=== PATIENT | female | born 1950 | race Caucasian/White ===

== ENCOUNTER 2017-02-23 18:31 | Inpatient (IN) | payer OTHER ==
[~2017-02-23] VITALS: Ht 154.9 cm; Wt 100.4 kg
[2017-02-23] MEDS ORDERED: SODIUM CHLORIDE 0.9% 1,000 ML IV ONE (18:48)
[2017-02-23] MEDS ORDERED: ASPIRIN 81 MG TABLET CHEW PO ONE (19:00)
[2017-02-23] MEDS ORDERED: ASPIRIN 81 MG TABLET CHEW ONE (19:00)
[2017-02-23] MEDS ORDERED: ONDANSETRON 2MG/ML, 2ML IVPush ONE (19:00)
[2017-02-23] MEDS ORDERED: NITROGLYCERIN SINGLE TAB 0.4 MG SL PRN (19:00)
[2017-02-23] MEDS ORDERED: NITROGLYCERIN SINGLE TAB 0.4 MG SL ONE (19:00)
[2017-02-23] MEDS ORDERED: SODIUM CHLORIDE FLUSH 10ML SYR IVF ONE (19:00)
[2017-02-23] MEDS ORDERED: ONDANSETRON 2MG/ML, 2ML ONE (19:01)
[2017-02-23 19:20] LABS: ASPARTATE AMINO TRANSFERASE 70 U/L (15-37); BLOOD UREA NITROGEN 15 mg/dL (7-18)
[2017-02-23 19:26] LABS: IS PT STATUS REG ER OR PRE ER? YES
[2017-02-23] MEDS ORDERED: DICL75TA2 PO (20:38)
[2017-02-23] MEDS ORDERED: OMEP-110 PO (20:38)
[2017-02-23] MEDS ORDERED: FINA5TAB4 PO (20:38)
[2017-02-23] MEDS ORDERED: PRAV20TA2 PO (20:38)
[2017-02-23] MEDS ORDERED: LORA0.5T PO (20:38)
[2017-02-23] MEDS ORDERED: LISI-167 PO (20:38)
[2017-02-23] MEDS ORDERED: FLUO20CA19 PO (20:38)
[2017-02-23] MEDS ORDERED: GABA100C8 PO (20:38)
[2017-02-23] MEDS ORDERED: OMNIPAQUE 350 MG/ML, 100ML BOTTLE ONE (21:03)
[2017-02-23] MEDS: SODIUM CHLORIDE FLUSH 3ML SYRINGE IVF SCH (23:00)
[2017-02-23] MEDS ORDERED: NITROGLYCERIN 0.4 MG BOTTLE (25 TABS) SL PRN (23:00)
[2017-02-23] MEDS ORDERED: ONDANSETRON 2MG/ML, 2ML IVPush PRN (23:00)
[2017-02-23] MEDS ORDERED: POLYETHYLENE GLYCOL 17 GM PACKET PO PRN (23:00)
[2017-02-23] MEDS: GABAPENTIN 100 MG CAPSULE PO SCH (23:00)
[2017-02-23] MEDS ORDERED: HYDROmorphone 2 MG/ML, 1ML IVPush PRN (23:00)
[2017-02-23] MEDS ORDERED: PRAVASTATIN 20 MG TABLET PO SCH (23:00)
[2017-02-23] MEDS ORDERED: ENALAPRILAT 1.25 MG/ML, 2ML IVPush PRN (23:00)
[2017-02-23] MEDS ORDERED: BISACODYL 10 MG SUPP PR PRN (23:00)
[2017-02-23] MEDS: HEPARIN 5,000 UNITS/ML, 1ML SQ SCH (23:46)
[2017-02-23] MEDS: LORazepam 0.5MG TABLET PO SCH (23:46)
[2017-02-23 23:57] VITALS: BP 174/79
[2017-02-24 01:45] LABS: IS PT STATUS REG ER OR PRE ER? NO
[2017-02-24 04:00] VITALS: BP 119/69
[2017-02-24] MEDS ORDERED: ASPIRIN 81 MG TABLET EC PO SCH (06:00)
[2017-02-24] MEDS: HEPARIN 5,000 UNITS/ML, 1ML SQ SCH ×2 (06:03→15:00)
[2017-02-24 07:22] LABS: BLOOD UREA NITROGEN 13 mg/dL (7-18)
[2017-02-24 07:27] LABS: ASPARTATE AMINO TRANSFERASE 54 U/L (15-37)
[2017-02-24 07:28] LABS: IS PT STATUS REG ER OR PRE ER? NO
[2017-02-24 07:33] VITALS: BP 135/74
[2017-02-24] MEDS: GABAPENTIN 100 MG CAPSULE PO SCH ×2 (08:11→17:31)
[2017-02-24] MEDS: SODIUM CHLORIDE FLUSH 3ML SYRINGE IVF SCH (08:14)
[2017-02-24] MEDS: LORazepam 0.5MG TABLET PO SCH (08:19)
[2017-02-24] MEDS ORDERED: REGADENOSON 0.4 MG/5 ML SYRINGE ONE (08:37)
[2017-02-24] MEDS ORDERED: FINASTERIDE 5 MG TABLET PO SCH (09:00)
[2017-02-24] MEDS ORDERED: FLUOXETINE 20 MG CAPSULE PO SCH (09:00)
[2017-02-24] MEDS ORDERED: LISINOPRIL 10 MG TABLET PO SCH (09:00)
[2017-02-24] MEDS ORDERED: SENNA/DOCUSATE TABLET PO SCH (09:00)
[2017-02-24 10:41] LABS: HEPATITIS C VIRUS ANTIBODY Nonreactive (Nonreactive)
[2017-02-24] MEDS ORDERED: PNEUMOCOCCAL 23 VACCINE IM-VACC ONE (11:00)
[2017-02-24] MEDS ORDERED: LORA0.5T PO (12:26)
[2017-02-24 17:15] VITALS: BP 138/73
[2017-02-24] MEDS ORDERED: CEFD300C37 PO (17:34)
[2017-02-24] MEDS ORDERED: POLY17PO5 PO (17:34)
[2017-02-24] MEDS ORDERED: METH500T97 PO (17:34)
[2017-02-24] MEDS ORDERED: DOXY100T PO (17:34)
[2017-02-24] MEDS ORDERED: LISI-170 PO (17:34)
== END 2017-02-24 19:47 | disposition home or self-care (01) | DRG 280 ==
LOC: ED 20:38 → EDIP 22:09 → 5SO 23:01
PROVIDERS: ADMIT Family Medicine; ATTEND Family Medicine
DX: I21.4 Non-ST elevation (NSTEMI) myocardial infarction (principal); J18.9 Pneumonia, unspecified organism; Z68.41 Body mass index [BMI] 40.0-44.9, adult; I10 Essential (primary) hypertension; F12.90 Cannabis use, unspecified, uncomplicated; E78.5 Hyperlipidemia, unspecified; E66.9 Obesity, unspecified; Z96.653 Presence of artificial knee joint, bilateral; Z87.891 Personal history of nicotine dependence; Z98.1 Arthrodesis status; Z82.49 Family history of ischemic heart disease and other diseases of the circulatory system; Z79.899 Other long term (current) drug therapy
CPT/HCPCS: 36415; 71010; 71275; 78452; 80053; 80074; 83880; 84439; 84443; 84484; 85025; 93005; 93017; 93306; 96361; 96374; J1644; J2405; J2785; Q9967; A9502; C9898; J7030